=== PATIENT | female | born 1965 | race Hispanic/Latino ===

== ENCOUNTER 2019-03-22 14:19 | Inpatient (IN) | payer OTHER, SELFPAY ==
[~2019-03-22] VITALS: Ht 152.4 cm; Wt 67.9 kg
[2019-03-22 14:51] LABS: BASOPHILS % (AUTO) 0.2 % (0.0-5.0); EOSINOPHILS % (AUTO) 1.7 % (0.0-8.0); HEMATOCRIT 38.8 % (36-48); LYMPHOCYTES % (AUTO) 21.6 % (21.0-51.0); MEAN CORPUSCULAR HEMOGLOBIN 30.1 pg (27.0-33.0); MEAN CORPUSCULAR VOLUME 88.6 fL (79-99); MONOCYTES % (AUTO) 4.2 % (3.0-13.0); PLATELET COUNT (AUTO) 285 K/uL (130-400); RED BLOOD CELL COUNT(AUTO) 4.38 MIL/uL (4.00-5.50); RED CELL DISTRIBUTION WIDTH 12.4 % (11.0-15.5)
[2019-03-22 15:10] LABS: CREATININE 0.8 mg/dL (0.5-1.5)
[2019-03-22 15:24] LABS: APPEARANCE,URINE Clear (CLEAR); BILIRUBIN,URINE Negative (NEGATIVE); COLOR,URINE Yellow (YELLOW); GLUCOSE, URINE (UA) Negative (NEGATIVE); KETONES,URINE Negative (NEGATIVE); LEUKOCYTE ESTERASE ,URINE Negative (NEGATIVE); NITRATE,URINE Negative (NEGATIVE); OCCULT BLOOD,URINE Moderate (NEGATIVE); PH,URINE 6.5 (5.0-8.0); PROTEIN,URINE Negative (NEGATIVE); UROBILINOGEN,URINE 0.2 mg/dL (0.2-1.0)
[2019-03-22 15:24] LABS: BILIRUBIN,DIRECT 0.1 mg/dL (0.0-0.3); BILIRUBIN,TOTAL 0.9 mg/dL (0.2-1.0)
[2019-03-22 15:36] LABS: BACTERIA,URINE Rare /HPF (None Seen); MUCUS,URINE Few LPF (None Seen); SQUAMOUS EPITHELIAL CELL,UR 0-2 /HPF (0-2); WBC,URINE 0-1 /HPF (0-1)
[2019-03-22] MEDS ORDERED: SODIUM CHLORIDE 0.9% 1000ML 1,000 ML IV ONE ×2 (15:54→19:48)
[2019-03-22 15:59] LABS: INR 0.86 (0.85-1.15); PROTHROMBIN TIME 9.1 SEC (9.6-11.6)
[2019-03-22 16:12] LABS: MAGNESIUM 2.1 mg/dL (1.80-2.40); PHOSPHORUS 5.5 mg/dL (2.5-4.9); THYROID STIMULATING HORMONE 1.57 uIU/mL (0.36-3.74)
[2019-03-22] MEDS: SODIUM CHLORIDE 0.9% 1000ML 1,000 ML IV SCH (18:39)
[2019-03-22] MEDS ORDERED: ACETAMINOPHEN 325 MG TAB PO PRN ×2 (18:45)
[2019-03-22] MEDS ORDERED: ONDANSETRON HCL 4 MG/2 ML VIAL IV PRN (18:45)
[2019-03-22] MEDS ORDERED: LACTULOSE 20 GM/30 ML UDCUP PO PRN (18:45)
[2019-03-22] MEDS: INSULIN HUMULIN R 100 UNIT/ML 3ML SQ SCH (21:00)
[2019-03-22] MEDS: FAMOTIDINE 20MG TAB 20 MG TAB PO SCH (21:00)
[2019-03-22] MEDS ORDERED: FAMOTIDINE 20MG TAB 20 MG TAB ONE (21:12)
[2019-03-22 21:23] VITALS: BP 136/75
[2019-03-23 00:06] VITALS: BP 127/73
[2019-03-23] MEDS: SODIUM CHLORIDE 0.9% 1000ML 1,000 ML IV SCH ×3 (02:39→20:47)
[2019-03-23 04:36] VITALS: BP 132/72
[2019-03-23 04:54] LABS: BASOPHILS % (AUTO) 0.2 % (0.0-5.0); EOSINOPHILS % (AUTO) 3.2 % (0.0-8.0); HEMATOCRIT 33.3 % (36-48); MEAN CORPUSCULAR HEMOGLOBIN 30.2 pg (27.0-33.0); MEAN CORPUSCULAR HGB CONC 33.3 g/dL (32.0-36.0); MEAN CORPUSCULAR VOLUME 90.7 fL (79-99); MONOCYTES % (AUTO) 5.8 % (3.0-13.0); NEUTROPHILS % (AUTO) 58.5 % (40.0-77.0); PLATELET COUNT (AUTO) 235 K/uL (130-400); RED BLOOD CELL COUNT(AUTO) 3.67 MIL/uL (4.00-5.50); RED CELL DISTRIBUTION WIDTH 12.7 % (11.0-15.5); WHITE BLOOD COUNT (AUTO) 6.2 K/uL (4.8-10.8)
[2019-03-23 05:37] LABS: CREATININE 0.8 mg/dL (0.5-1.5); POTASSIUM 3.9 mmol/L (3.5-5.1)
[2019-03-23] MEDS: INSULIN HUMULIN R 100 UNIT/ML 3ML SQ SCH ×5 (07:30→20:45)
[2019-03-23 08:00] VITALS: BP 125/78
[2019-03-23] MEDS: FAMOTIDINE 20MG TAB 20 MG TAB PO SCH ×2 (09:52→20:45)
[2019-03-23] MEDS: ENOXAPARIN SODIUM 30 MG/0.3 ML SQ SCH (09:52)
[2019-03-23 11:14] VITALS: BP 122/75
[2019-03-23 16:00] VITALS: BP 117/76
[2019-03-23 19:15] VITALS: BP 143/86
[2019-03-24] VITALS (7 sets, daily range): BP systolic 119–154; BP diastolic 68–88
[2019-03-24] MEDS: SODIUM CHLORIDE 0.9% 1000ML 1,000 ML IV SCH ×4 (04:29→20:23)
[2019-03-24 05:23] LABS: BASOPHILS % (AUTO) 0.4 % (0.0-5.0); EOSINOPHILS % (AUTO) 5.5 % (0.0-8.0); HEMATOCRIT 33.3 % (36-48); LYMPHOCYTES % (AUTO) 43.3 % (21.0-51.0); MEAN CORPUSCULAR HEMOGLOBIN 30.2 pg (27.0-33.0); MEAN CORPUSCULAR HGB CONC 32.7 g/dL (32.0-36.0); MEAN CORPUSCULAR VOLUME 92.2 fL (79-99); MONOCYTES % (AUTO) 6.5 % (3.0-13.0); NEUTROPHILS % (AUTO) 43.7 % (40.0-77.0); PLATELET COUNT (AUTO) 245 K/uL (130-400); RED BLOOD CELL COUNT(AUTO) 3.61 MIL/uL (4.00-5.50); RED CELL DISTRIBUTION WIDTH 12.5 % (11.0-15.5); WHITE BLOOD COUNT (AUTO) 4.8 K/uL (4.8-10.8)
[2019-03-24] MEDS: INSULIN HUMULIN R 100 UNIT/ML 3ML SQ SCH ×3 (05:24→20:23)
[2019-03-24 06:25] LABS: ALBUMIN 2.9 g/dL (3.5-5.0); BILIRUBIN,TOTAL 0.4 mg/dL (0.2-1.0); CREATININE 0.8 mg/dL (0.5-1.5); POTASSIUM 4.1 mmol/L (3.5-5.1); TOTAL PROTEIN, SERUM 6.2 g/dL (6.0-8.3)
[2019-03-24 07:14] LABS: HEPATITIS A ANTIBODY IGM Negative (Negative); HEPATITIS B CORE IGM Negative (Negative); HEPATITIS Bs ANTIGEN SCREEN P Negative (Negative)
[2019-03-24] MEDS: FAMOTIDINE 20MG TAB 20 MG TAB PO SCH ×2 (09:56→20:23)
[2019-03-24] MEDS: ENOXAPARIN SODIUM 30 MG/0.3 ML SQ SCH (09:57)
[2019-03-25] VITALS (7 sets, daily range): BP systolic 123–145; BP diastolic 67–85
[2019-03-25 04:01] LABS: APPEARANCE,URINE Clear (CLEAR); BILIRUBIN,URINE Negative (NEGATIVE); COLOR,URINE Yellow (YELLOW); GLUCOSE, URINE (UA) Negative (NEGATIVE); KETONES,URINE Negative (NEGATIVE); LEUKOCYTE ESTERASE ,URINE Negative (NEGATIVE); NITRATE,URINE Negative (NEGATIVE); OCCULT BLOOD,URINE Small (NEGATIVE); PROTEIN,URINE Negative (NEGATIVE); UROBILINOGEN,URINE 0.2 mg/dL (0.2-1.0)
[2019-03-25 04:54] LABS: BACTERIA,URINE Few /HPF (None Seen); RBC,URINE 0-1 /HPF (0-1); SQUAMOUS EPITHELIAL CELL,UR 0-2 /HPF (0-2); WBC,URINE 0-1 /HPF (0-1)
[2019-03-25] MEDS: INSULIN HUMULIN R 100 UNIT/ML 3ML SQ SCH ×4 (05:20→21:00)
[2019-03-25 06:40] LABS: HEMATOCRIT 32.9 % (36-48); MEAN CORPUSCULAR HEMOGLOBIN 29.8 pg (27.0-33.0); MEAN CORPUSCULAR HGB CONC 32.8 g/dL (32.0-36.0); MEAN CORPUSCULAR VOLUME 90.6 fL (79-99); PLATELET COUNT (AUTO) 247 K/uL (130-400); RED BLOOD CELL COUNT(AUTO) 3.63 MIL/uL (4.00-5.50); RED CELL DISTRIBUTION WIDTH 12.4 % (11.0-15.5); WHITE BLOOD COUNT (AUTO) 4.8 K/uL (4.8-10.8)
[2019-03-25 07:34] LABS: ALBUMIN 2.9 g/dL (3.5-5.0); BILIRUBIN,DIRECT 0.1 mg/dL (0.0-0.3); BILIRUBIN,TOTAL 0.3 mg/dL (0.2-1.0); CREATININE 0.7 mg/dL (0.5-1.5); MAGNESIUM 1.7 mg/dL (1.80-2.40); PHOSPHORUS 4.6 mg/dL (2.5-4.9); POTASSIUM 4.3 mmol/L (3.5-5.1); TOTAL PROTEIN, SERUM 6.1 g/dL (6.0-8.3); URIC ACID 4.3 mg/dL (2.6-7.2)
[2019-03-25] MEDS ORDERED: METF500S7 PO (08:08)
[2019-03-25] MEDS: FOLIC ACID/VITAMIN B COMP W-C 1 MG CAP/TAB PO SCH (08:55)
[2019-03-25] MEDS: SODIUM CHLORIDE 0.9% 1000ML 1,000 ML IV SCH ×2 (08:55→17:07)
[2019-03-25] MEDS: THIAMINE HCL 100 MG/ML 2ML VIAL IVP SCH (08:55)
[2019-03-25] MEDS: FAMOTIDINE 20MG TAB 20 MG TAB PO SCH ×2 (08:55→20:26)
[2019-03-25] MEDS: ENOXAPARIN SODIUM 30 MG/0.3 ML SQ SCH (08:56)
--- NOTE | 2019-03-25 14:29 | NUR ---
DC PLAN MEET WITH PATIENT AND SPOUSE IN ROOM. PER PATIENT, IS INDEPENDENT WITH ADLS, LIVES WITH SPOUSE, DENIES DME IN USE OR PROVIDER/COMMUNITY RESOURCES IN USE, AND FEELS SAFE TO RETURN HOME ONCE DISCHARGED FROM HOSPITAL. Addendum: 03/25/19 at 1430 by JOE LERNER RN Amended: Links added.
[2019-03-26] MEDS: SODIUM CHLORIDE 0.9% 1000ML 1,000 ML IV SCH ×5 (02:04→21:30)
[2019-03-26 04:27] VITALS: BP 126/73
[2019-03-26 05:35] LABS: ALBUMIN 2.9 g/dL (3.5-5.0); BILIRUBIN,TOTAL 0.4 mg/dL (0.2-1.0); CREATININE 0.7 mg/dL (0.5-1.5); POTASSIUM 3.9 mmol/L (3.5-5.1); TOTAL PROTEIN, SERUM 6.1 g/dL (6.0-8.3)
[2019-03-26] MEDS: INSULIN HUMULIN R 100 UNIT/ML 3ML SQ SCH ×4 (06:06→20:14)
[2019-03-26 07:54] VITALS: BP 131/75
[2019-03-26 11:34] VITALS: BP 134/78
[2019-03-26] MEDS: ENOXAPARIN SODIUM 30 MG/0.3 ML SQ SCH (12:02)
[2019-03-26] MEDS: FOLIC ACID/VITAMIN B COMP W-C 1 MG CAP/TAB PO SCH (12:03)
[2019-03-26] MEDS: FAMOTIDINE 20MG TAB 20 MG TAB PO SCH ×2 (12:03→21:30)
[2019-03-26] MEDS: THIAMINE HCL 100 MG/ML 2ML VIAL IVP SCH (12:03)
[2019-03-26 15:38] VITALS: BP 129/79
[2019-03-26] MEDS: SODIUM CHLORIDE 0.9% 500ML 500 ML IV SCH ×2 (16:00→17:16)
[2019-03-26 19:00] VITALS: BP 135/62
[2019-03-26] MEDS ORDERED: SODIUM CHLORIDE 0.9% 500ML 500 ML IV SCH (22:00)
[2019-03-26 23:00] VITALS: BP 126/71
[2019-03-27] MEDS: SODIUM CHLORIDE 0.9% 1000ML 1,000 ML IV SCH ×3 (02:26→17:31)
[2019-03-27 03:00] VITALS: BP 140/79
[2019-03-27] MEDS: INSULIN HUMULIN R 100 UNIT/ML 3ML SQ SCH ×4 (05:24→21:00)
[2019-03-27 06:28] LABS: CREATININE 0.9 mg/dL (0.5-1.5)
[2019-03-27 08:00] VITALS: BP 143/79
[2019-03-27] MEDS: FOLIC ACID/VITAMIN B COMP W-C 1 MG CAP/TAB PO SCH (08:50)
[2019-03-27] MEDS: THIAMINE HCL 100 MG/ML 2ML VIAL IVP SCH (08:50)
[2019-03-27] MEDS: FAMOTIDINE 20MG TAB 20 MG TAB PO SCH ×2 (08:50→21:06)
[2019-03-27] MEDS: ENOXAPARIN SODIUM 30 MG/0.3 ML SQ SCH (08:50)
--- NOTE | 2019-03-27 10:50 | NUR ---
RD NOTIFICATION PO INTAKE 100% AND HAS GOOD APPETITE. RD CONSULTS DUE TO LOS X 5. NO COMPLAINTS OF N/V/C/D AT THIS TIME. LABS REVIEWED. MEDS REVIEWED. CRISELDA RECOMMENDS TO ADD LOW PROTEIN TO DIET ORDER - SMALLER PROTEIN PORTIONS AT MEAL TIMES RD INFORMED PT, SHE VERBALIZED UNDERSTANDING. Addendum: 03/27/19 at [address] Amended: Links added.
[2019-03-27 11:38] VITALS: BP 134/88
[2019-03-27 16:00] VITALS: BP 135/78
[2019-03-27 19:37] VITALS: BP 150/80
[2019-03-27] MEDS ORDERED: SODIUM CHLORIDE 0.9% 500ML 500 ML IV ONE ×2 (23:08→23:15)
[2019-03-27 23:32] VITALS: BP 144/77
[2019-03-28] MEDS: SODIUM CHLORIDE 0.9% 1000ML 1,000 ML IV SCH ×4 (00:36→19:56)
[2019-03-28 03:50] VITALS: BP 122/68
[2019-03-28 05:27] LABS: HEMATOCRIT 32.2 % (36-48); MEAN CORPUSCULAR HEMOGLOBIN 29.4 pg (27.0-33.0); PLATELET COUNT (AUTO) 244 K/uL (130-400); RED CELL DISTRIBUTION WIDTH 12.7 % (11.0-15.5); WHITE BLOOD COUNT (AUTO) 5.1 K/uL (4.8-10.8)
[2019-03-28] MEDS: INSULIN HUMULIN R 100 UNIT/ML 3ML SQ SCH ×4 (06:35→20:04)
[2019-03-28 06:41] LABS: CREATININE 0.7 mg/dL (0.5-1.5); POTASSIUM 4.3 mmol/L (3.5-5.1)
[2019-03-28 07:29] VITALS: BP 121/71
[2019-03-28] MEDS: ENOXAPARIN SODIUM 30 MG/0.3 ML SQ SCH (08:04)
[2019-03-28] MEDS: FAMOTIDINE 20MG TAB 20 MG TAB PO SCH ×2 (08:04→20:01)
[2019-03-28] MEDS: THIAMINE HCL 100 MG/ML 2ML VIAL IVP SCH (08:04)
[2019-03-28] MEDS: FOLIC ACID/VITAMIN B COMP W-C 1 MG CAP/TAB PO SCH (08:04)
[2019-03-28] MEDS ORDERED: SODIUM CHLORIDE 0.9% 250 ML IV ONE (10:29)
[2019-03-28] MEDS ORDERED: SODIUM CHLORIDE 0.9% 500ML 250 ML IV ONE (10:30)
[2019-03-28 11:39] VITALS: BP 132/69
[2019-03-28 16:00] VITALS: BP 143/91
[2019-03-28 20:00] VITALS: BP 165/83
[2019-03-28] MEDS ORDERED: SODIUM CHLORIDE 0.9% 500ML 500 ML IV ONE ×2 (22:05→22:15)
[2019-03-28 23:44] VITALS: BP 141/85
[2019-03-29] MEDS: SODIUM CHLORIDE 0.9% 1000ML 1,000 ML IV SCH ×3 (03:35→16:27)
[2019-03-29 03:53] VITALS: BP 115/75
[2019-03-29 05:32] LABS: HEMATOCRIT 32.4 % (36-48); MEAN CORPUSCULAR VOLUME 90.8 fL (79-99); PLATELET COUNT (AUTO) 257 K/uL (130-400); RED BLOOD CELL COUNT(AUTO) 3.57 MIL/uL (4.00-5.50); RED CELL DISTRIBUTION WIDTH 12.8 % (11.0-15.5); WHITE BLOOD COUNT (AUTO) 5.8 K/uL (4.8-10.8)
[2019-03-29 05:59] LABS: CREATININE 0.7 mg/dL (0.5-1.5)
[2019-03-29] MEDS: INSULIN HUMULIN R 100 UNIT/ML 3ML SQ SCH ×4 (06:13→21:00)
[2019-03-29 08:00] VITALS: BP 143/70
[2019-03-29] MEDS: FOLIC ACID/VITAMIN B COMP W-C 1 MG CAP/TAB PO SCH (08:04)
[2019-03-29] MEDS: THIAMINE HCL 100 MG/ML 2ML VIAL IVP SCH (08:04)
[2019-03-29] MEDS: FAMOTIDINE 20MG TAB 20 MG TAB PO SCH ×2 (08:04→22:15)
[2019-03-29] MEDS: ENOXAPARIN SODIUM 30 MG/0.3 ML SQ SCH (08:05)
[2019-03-29 12:00] VITALS: BP 132/76
--- NOTE | 2019-03-29 12:43 | NUR ---
RHEUMATOLOGY CONSULT FIRST ATTEMPT AT CONSULT WAS MADE FOR DR. CRAMER. RECEIVED RETURN CALL FROM DR. CRAMER WHO ADVISED HE WAS OUT OF TOWN AND WOULD NOT BE ABLE TO SEE PATIENT UNTIL TOMORROW EVENING WHEN HE RETURNED. ATTEMPTED TO CONSULT DR. TEE, MADE NUMEROUS ATTEMPTS TO CONTACT DR. TEE AT [phone]. NO ANSWER, UNABLE TO LEAVE MESSAGE AT NUMBER PROVIDED.
[2019-03-29 16:00] VITALS: BP 153/76
[2019-03-29 19:23] VITALS: BP 156/73
[2019-03-30] VITALS: BP 132/82
[2019-03-30] MEDS: SODIUM CHLORIDE 0.9% 1000ML 1,000 ML IV SCH ×4 (00:15→20:22)
[2019-03-30 01:22] LABS: APPEARANCE,URINE Clear (CLEAR); BILIRUBIN,URINE Negative (NEGATIVE); COLOR,URINE Yellow (YELLOW); GLUCOSE, URINE (UA) Negative (NEGATIVE); KETONES,URINE Negative (NEGATIVE); LEUKOCYTE ESTERASE ,URINE Trace (NEGATIVE); NITRATE,URINE Negative (NEGATIVE); OCCULT BLOOD,URINE Small (NEGATIVE); PH,URINE 5.5 (5.0-8.0); PROTEIN,URINE Negative (NEGATIVE); UROBILINOGEN,URINE 0.2 mg/dL (0.2-1.0)
[2019-03-30 01:32] LABS: BACTERIA,URINE Rare /HPF (None Seen); RBC,URINE 0-1 /HPF (0-1); WBC,URINE 0-1 /HPF (0-1)
[2019-03-30 04:00] VITALS: BP 120/61
[2019-03-30 05:51] LABS: CREATININE 0.7 mg/dL (0.5-1.5); POTASSIUM 4.2 mmol/L (3.5-5.1)
[2019-03-30] MEDS: INSULIN HUMULIN R 100 UNIT/ML 3ML SQ SCH ×4 (07:30→20:27)
[2019-03-30 08:00] VITALS: BP 134/68
[2019-03-30] MEDS: FOLIC ACID/VITAMIN B COMP W-C 1 MG CAP/TAB PO SCH (08:04)
[2019-03-30] MEDS: FAMOTIDINE 20MG TAB 20 MG TAB PO SCH ×2 (08:04→20:24)
[2019-03-30] MEDS: THIAMINE HCL 100 MG/ML 2ML VIAL IVP SCH (08:05)
[2019-03-30] MEDS: ENOXAPARIN SODIUM 30 MG/0.3 ML SQ SCH (08:05)
--- NOTE | 2019-03-30 08:29 | NUR ---
RHEUMATOLOGY CONSULT FOLLOW UP Received call from Dr. Muro's office. Stated Dr. Muro will come see patient vicente. Patient updated.
[2019-03-30 11:39] VITALS: BP 149/84
[2019-03-30 16:00] VITALS: BP 127/70
[2019-03-30 19:52] VITALS: BP 134/66
[2019-03-31] VITALS: BP 141/73
[2019-03-31 04:00] VITALS: BP 119/66
[2019-03-31 05:35] LABS: BASOPHILS % (AUTO) 0.3 % (0.0-5.0); EOSINOPHILS % (AUTO) 6.2 % (0.0-8.0); HEMATOCRIT 33.1 % (36-48); LYMPHOCYTES % (AUTO) 41.8 % (21.0-51.0); MEAN CORPUSCULAR HEMOGLOBIN 29.8 pg (27.0-33.0); MEAN CORPUSCULAR HGB CONC 32.6 g/dL (32.0-36.0); MEAN CORPUSCULAR VOLUME 91.2 fL (79-99); MONOCYTES % (AUTO) 6.4 % (3.0-13.0); NEUTROPHILS % (AUTO) 44.6 % (40.0-77.0); PLATELET COUNT (AUTO) 274 K/uL (130-400); RED BLOOD CELL COUNT(AUTO) 3.63 MIL/uL (4.00-5.50); RED CELL DISTRIBUTION WIDTH 12.9 % (11.0-15.5)
[2019-03-31] MEDS: SODIUM CHLORIDE 0.9% 1000ML 1,000 ML IV SCH ×3 (05:43→10:29)
[2019-03-31 06:05] LABS: ALBUMIN 2.9 g/dL (3.5-5.0); BILIRUBIN,TOTAL 0.5 mg/dL (0.2-1.0); CREATININE 0.7 mg/dL (0.5-1.5); POTASSIUM 3.8 mmol/L (3.5-5.1); TOTAL PROTEIN, SERUM 6.2 g/dL (6.0-8.3)
[2019-03-31] MEDS: INSULIN HUMULIN R 100 UNIT/ML 3ML SQ SCH ×2 (07:30→11:29)
[2019-03-31 08:00] VITALS: BP 130/71
[2019-03-31] MEDS: THIAMINE HCL 100 MG/ML 2ML VIAL IVP SCH (09:00)
[2019-03-31] MEDS: ENOXAPARIN SODIUM 30 MG/0.3 ML SQ SCH (10:58)
[2019-03-31] MEDS: FAMOTIDINE 20MG TAB 20 MG TAB PO SCH (10:58)
[2019-03-31] MEDS: FOLIC ACID/VITAMIN B COMP W-C 1 MG CAP/TAB PO SCH (10:58)
[2019-03-31 11:55] VITALS: BP 134/65
[2019-03-31 15:37] VITALS: BP 135/72
== END 2019-03-31 20:30 | disposition home or self-care (01) | DRG 558 ==
LOC: EDH 14:19 → EDHIP 14:20 → 3DH 21:23
PROVIDERS: ADMIT Internal Medicine; ATTEND Internal Medicine
DX: M62.82 Rhabdomyolysis (principal); C64.9 Malignant neoplasm of unspecified kidney, except renal pelvis; B17.9 Acute viral hepatitis, unspecified; T46.6X5A Adverse effect of antihyperlipidemic and antiarteriosclerotic drugs, initial encounter; E11.9 Type 2 diabetes mellitus without complications; Z90.5 Acquired absence of kidney; N28.9 Disorder of kidney and ureter, unspecified; E11.21 Type 2 diabetes mellitus with diabetic nephropathy; E78.5 Hyperlipidemia, unspecified; I10 Essential (primary) hypertension; Z85.528 Personal history of other malignant neoplasm of kidney; Y92.89 Other specified places as the place of occurrence of the external cause
CPT/HCPCS: 36415; 71046; 76705; 80048; 80053; 80074; 80076; 81001; 82550; 82948; 82977; 83735; 83874; 84100; 84425; 84443; 84484; 84550; 85025; 85027; 85610; 85730; 93005; G0378; J1650; J1815; J3411; J7030; J7040